=== PATIENT | male | born 1995 | race African-American/Black ===

== ENCOUNTER 2017-03-15 23:32 | Emergency (ER) | payer MEDICAID ==
[~2017-03-15] VITALS: Ht 175.3 cm; Wt 71.0 kg
[2017-03-16] MEDS ORDERED: LIDOCAINE HCL 1% 20ML VIAL (Pyxis) INJ MC ONE (01:45)
[2017-03-16] MEDS ORDERED: TETANUS, DIPHTHERIA, PERTUSSIS VAC/PF 0.5ML (>7YR OLD) IM ONE (01:45)
[2017-03-16] MEDS ORDERED: BACITRACIN ZINC OINT UDPKT TOP ONE (01:45)
[2017-03-16 03:30] VITALS: BP 119/76
== END 2017-03-16 05:23 | disposition home or self-care (01) ==
LOC: ER 23:32
DX: S01.112A Laceration without foreign body of left eyelid and periocular area, initial encounter (principal); Y93.67 Activity, basketball; Y92.89 Other specified places as the place of occurrence of the external cause; Z23 Encounter for immunization
CPT/HCPCS: 12011; 90471; 90715; 99283; J3490; X7700; Z7610; 12001

== ENCOUNTER 2018-11-08 07:46 | Emergency (ER) | payer MEDICAID ==
[~2018-11-08] VITALS: Ht 167.6 cm; Wt 64.0 kg
[2018-11-08] MEDS ORDERED: KETOROLAC 60MG/2ML VIAL IM ONE (09:30)
[2018-11-08 09:43] VITALS: BP 123/77
== END 2018-11-08 09:43 | disposition home or self-care (01) ==
LOC: ER 07:46
DX: S70.262A Insect bite (nonvenomous), left hip, initial encounter (principal); S70.362A Insect bite (nonvenomous), left thigh, initial encounter; W57.XXXA Bitten or stung by nonvenomous insect and other nonvenomous arthropods, initial encounter; Y93.89 Activity, other specified; Y92.89 Other specified places as the place of occurrence of the external cause; Y99.8 Other external cause status
CPT/HCPCS: 96372; 99283; J1885